=== PATIENT | female | born 1985 | race Caucasian/White ===

== ENCOUNTER 2017-02-17 06:54 | Day surgery (SDC) | payer OTHER ==
[~2017-02-17] VITALS: Ht 165.1 cm; Wt 89.7 kg
[2017-02-17 07:28] VITALS: Ht 165.1 cm; Wt 89.7 kg
[2017-02-17] MEDS ORDERED: PILO5TAB PO (07:40)
[2017-02-17] MEDS ORDERED: ONDA4TAB95 PO (07:40)
[2017-02-17] MEDS ORDERED: TOLT2CAP7 PO (07:40)
[2017-02-17] MEDS ORDERED: SERT-165 PO (07:40)
[2017-02-17] MEDS ORDERED: METH500T8 PO (07:40)
[2017-02-17] MEDS ORDERED: LIDOCAINE 2% (SDV) 5 ML INJ ONE (07:43)
[2017-02-17] MEDS ORDERED: PROPOFOL 40 ML ONE (07:43)
[2017-02-17] MEDS ORDERED: MIDAZOLAM 1 MG/ML 2 ML INJ ONE (07:43)
[2017-02-17 07:57] VITALS: BP 121/81; PULSE 74; RESP 13
[2017-02-17 09:16] VITALS: BP 144/61; RESP 20
--- NOTE | 2017-02-17 17:05 | GILP ---
DATE OF PROCEDURE: PROCEDURE PERFORMED: Esophagogastroduodenoscopy with biopsy, and colonoscopy. INDICATION: A 31-year-old female undergoing this procedure for persistent epigastric pain, intermit tent nausea and vomiting for last 6 months, and colonoscopy for severe constipation. INFORMED CONSENT: The risk of the procedure, related and unrelated complications, anesthetic risks, alternatives discussed. Informed consent was obtained. DESCRIPTION OF PROCEDURE: The patient was brought to the GI lab, sedated by Dr. Dalton. After optima l sedation, scope was passed with much ease into the esophagus which was grossly within normal limit s. Z line was at 39 cm. Stomach mucosa revealed multiple erosions in the antrum and there was a li near erosion horizontally placed about 3 cm in length. Duodenum revealed duodenitis, ampulla was no rmal. Scope was withdrawn. Retroversion done, no growth was seen. No varicose vein identified. M ultiple biopsies obtained from the stomach randomly to rule out H. pylori infection. The scope was straightened out and removed with good patient tolerance. IMPRESSION 1. Normal esophagus. 2. Z line regular at 38 to 39 cm. 3. Erosive gastritis. 4. Duodenitis. 5. Normal ampulla. Plan is to review histopathology, start the patient on PPI. COLONOSCOPY: She was turned around. Digital examination done, which was normal. Scope was passed with much ease into the rectum. The patient was having a lot of involuntary movement. Managed to p ass all the way into the cecum and finally into terminal ileum. Terminal ileum was normal. Rest of the colon appeared normal. While coming out, mucosa thoroughly inspected. No gross lesion was identified. Preparation was cj quate. Small hemorrhoids seen. IMPRESSION: 1. Normal findings all the way into cecum. 2. Normal terminal ileum. 3. Hemorrhoids. 4. Clarity was good. 5. Cleanliness was adequate. PLAN: Start the patient on Linzess and colonoscopy should be repeated after 5 years. Dictated By: MIRANDA PHILLIP/KATTY Conf#: [id number] DID#: [id number]
== END 2017-02-17 12:19 | disposition home or self-care (01) ==
LOC: GIL 06:54
PROVIDERS: ATTEND Internal Medicine Gastroenterology
DX: K29.30 Chronic superficial gastritis without bleeding (principal); K29.80 Duodenitis without bleeding; K64.9 Unspecified hemorrhoids
CPT/HCPCS: 43239; 45378; 84703; 88305; 88312; J2250; Z7610